=== PATIENT | male | born 1950 | race Caucasian/White ===

== ENCOUNTER 2019-01-21 20:11 | Emergency (ER) | payer MEDICARE ==
[~2019-01-21] VITALS: Ht 175.3 cm; Wt 99.8 kg
--- NOTE | 2019-01-21 23:24 | EKG ---
[facility] [address] [place], [place] [address] Signed Atrial flutter with variable AV block Abnormal ECG No previous ECGs available Confirmed by DAVID GALVEZ MD ([id number] on 01/21/2019 11:24:35 PM Electronically Signed By: DAVID GALVEZ MD 01/21/19 2324 PATIENT NAME: MTATHEW SILVA Electrocardiogram DATE OF : 54 PHYSICIAN: DAVID GALVEZ MD REPORT #: [id number] REPORT IS CONFIDENTIAL AND NOT TO BE RELEASED WITHOUT AUTHORIZATION
--- NOTE | 2019-01-21 23:25 | EKG ---
[facility] [address] [facility] [place], [place] [address] Signed Atrial flutter with variable AV block Nonspecific T wave abnormality Abnormal ECG When compared with ECG of 21-JAN-2019 20:19, (Unconfirmed) ST no longer depressed in Inferior leads Confirmed by DAVID GALVEZ MD ([id number] on 01/21/2019 11:24:57 PM Electronically Signed By: DAVID GALVEZ MD 01/21/19 2325 PATIENT NAME: MATTHEW SILVA Electrocardiogram DATE OF : 54 PHYSICIAN: DAVID GALVEZ MD REPORT #: [id number] REPORT IS CONFIDENTIAL AND NOT TO BE RELEASED WITHOUT AUTHORIZATION
== END 2019-01-21 21:30 | disposition home or self-care (01) ==
LOC: ED 20:11
DX: I48.92 Unspecified atrial flutter (principal); I10 Essential (primary) hypertension; Z85.038 Personal history of other malignant neoplasm of large intestine
CPT/HCPCS: 80053; 83735; 84484; 85025; 93005; 93010; 99285-25